=== PATIENT | female | born 1955 | race Caucasian/White ===

== ENCOUNTER 2023-09-18 16:36 | Inpatient (IN) | payer MEDICAID ==
[~2023-09-18] VITALS: Ht 157.5 cm; Wt 40.8 kg
[2023-09-18] MEDS ORDERED: NIFEDIPINE XL 90MG TAB PO ONE (17:00)
[2023-09-18] MEDS ORDERED: CLONIDINE 0.3MG TABLET PO ONE (17:00)
[2023-09-18] MEDS ORDERED: HYDRALAZINE HCL 100MG TABLET PO ONE (17:00)
[2023-09-18 17:41] LABS: HEMATOCRIT. 30.9 % (36.0-48.0); HEMOGLOBIN. 10.2 g/dL (12.0-16.0); MEAN CORPUSCULAR HEMOGLOBIN 30.4 pg (28.0-32.0); MEAN CORPUSCULAR HGB CONC 33.1 g/dL (31.0-37.0); MEAN PLATELET VOLUME 8.2 fl (7.4-10.4); PLATELET 202 x1000/uL (130-400); RED BLOOD CELL COUNT 3.36 mill/uL (4.2-5.4); RED CELL DISTRIBUTION WIDTH 15.6 % (11.6-14.6)
[2023-09-18 17:42] LABS: CHLORIDE 100 mEq/L (98-107); INDEX HEMOLYSI 2 (1-3); INDEX ICTERIC 1 (1-4); INDEX LIPEMIC 1 (1-3); POTASSIUM 4.6 mEq/L (3.5-5.1); SODIUM 136 mEq/L (136-145)
[2023-09-18 17:49] LABS: DIFFERENTIAL COMMENT 1
[2023-09-18 17:52] LABS: ALANINE AMINOTRANSFERASE 18 IU/L (13-61); ALBUMIN 3.7 g/dL (3.4-5.0); ASPARTATE AMINOTRANSFERASE 29 IU/L (15-37); BILIRUBIN TOTAL 1.1 mg/dL (0.1-1.0); CALCIUM 9.5 mg/dL (8.5-10.1); CARBON DIOXIDE 25 mEq/L (21-32); CREATININE 3.6 mg/dL (0.6-1.3); GLUCOSE 110 mg/dL (70-105); UREA NITROGEN BLOOD 18 mg/dL (7-21)
[2023-09-18 18:17] LABS: INR 1.1; PROTHROMBIN TIME 12.2 sec (9.6-11.0)
[2023-09-18 18:21] LABS: TROPONIN I HIGH SENSITIVITY 61 ng/L (<54)
[2023-09-18 18:26] LABS: PLATELET ESTIMATE NORMAL
[2023-09-18] MEDS ORDERED: ASPIRIN 325MG TABLET PO ONE (19:45)
[2023-09-18 20:38] LABS: TROPONIN I HIGH SENSITIVITY 88 ng/L (<54)
[2023-09-19] MEDS ORDERED: ONDANSETRON HCL 4MG/2ML INJ IV PRN (01:15)
[2023-09-19 04:00] LABS: INDEX HEMOLYSI 1 (1-3); INDEX ICTERIC 1 (1-4); INDEX LIPEMIC 1 (1-3)
[2023-09-19 04:03] LABS: TOTAL IRON BINDING CAPACITY 122 ug/dL (250-450)
[2023-09-19 04:13] LABS: IRON 11 ug/dL (50-175)
[2023-09-19] MEDS: HYDRALAZINE HCL 50MG TABLET PO SCH ×3 (06:00→23:00)
[2023-09-19 07:48] LABS: TROPONIN I HIGH SENSITIVITY 78 ng/L (<54)
[2023-09-19] MEDS: THIAMINE HCL 100MG TABLET PO SCH (09:24)
[2023-09-19] MEDS: MULTIVITAMINS,THER W-MINERALS TABLET PO SCH (09:24)
[2023-09-19] MEDS: PANTOPRAZOLE SODIUM 40 MG/VIAL IV SCH (09:24)
[2023-09-19] MEDS ORDERED: CEFTRIAXONE 1GM PREMIX 50 ML IV SCH (14:00)
[2023-09-19 14:13] VITALS: BP 165/73; PULSE 62; RESP 18; TEMP 97.9
[2023-09-19 16:00] VITALS: BP 122/67; PULSE 75; RESP 20; TEMP 98.2
[2023-09-19] MEDS ORDERED: CEFTRIAXONE 1,000 MG in DEXTROSE 5% WATER 50 ML IV SCH (16:00)
[2023-09-19 16:22] VITALS: BP 165/73; PULSE 98; RESP 18; TEMP 98.8
[2023-09-19 17:18] LABS: TROPONIN I HIGH SENSITIVITY 46 ng/L (<54)
[2023-09-19 17:46] LABS: HEPATITIS B SURFACE ANTIGEN NEGATIVE
[2023-09-19 18:17] LABS: HEPATITIS C VIR.AB 0.07 INDEXVAL (0.00-0.80)
[2023-09-19 20:05] VITALS: BP 122/61; PULSE 62; RESP 19; TEMP 98.6
[2023-09-19 22:46] VITALS: BP 142/64; PULSE 115; RESP 17
[2023-09-20] VITALS: BP 180/68; PULSE 60; RESP 18
[2023-09-20 04:00] VITALS: BP 178/74; PULSE 69; RESP 18; TEMP 97.9
[2023-09-20] MEDS: HYDRALAZINE HCL 50MG TABLET PO SCH ×3 (06:03→21:28)
[2023-09-20 07:36] LABS: BASOPHILS % 1.3 % (0.0-2.0); EOSINOPHILS % 13.5 % (0.0-5.0); HEMATOCRIT. 30.5 % (36.0-48.0); HEMOGLOBIN. 10.1 g/dL (12.0-16.0); LYMPHOCYTES % 9.2 % (20.0-50.0); MEAN CORPUSCULAR HEMOGLOBIN 30.4 pg (28.0-32.0); MEAN CORPUSCULAR HGB CONC 33.1 g/dL (31.0-37.0); MEAN CORPUSCULAR VOLUME 91.8 fL (81.0-99.0); MEAN PLATELET VOLUME 9.2 fl (7.4-10.4); MONOCYTES % 8.9 % (2.0-8.0); NEUTROPHILS % 67.1 % (40.0-76.0); PLATELET 238 x1000/uL (130-400); RED BLOOD CELL COUNT 3.32 mill/uL (4.2-5.4); RED CELL DISTRIBUTION WIDTH 15.8 % (11.6-14.6); WHITE BLOOD COUNT 11.1 x1000/uL (4.5-11.0)
[2023-09-20 08:00] VITALS: BP 170/75; PULSE 80; RESP 18; TEMP 99
[2023-09-20 08:45] LABS: CHLORIDE 102 mEq/L (98-107); INDEX HEMOLYSI 1 (1-3); INDEX ICTERIC 1 (1-4); INDEX LIPEMIC 1 (1-3); POTASSIUM 5.3 mEq/L (3.5-5.1); SODIUM 133 mEq/L (136-145)
[2023-09-20 09:00] LABS: ALANINE AMINOTRANSFERASE 16 IU/L (13-61); ALBUMIN 2.9 g/dL (3.4-5.0); ASPARTATE AMINOTRANSFERASE 15 IU/L (15-37); BILIRUBIN TOTAL 0.5 mg/dL (0.1-1.0); CALCIUM 8.2 mg/dL (8.5-10.1); CARBON DIOXIDE 24 mEq/L (21-32); GLUCOSE 93 mg/dL (70-105); PROTEIN TOTAL 7.2 g/dL (6.0-8.3); T4 FREE 1.24 ng/dL (0.76-1.46); UREA NITROGEN BLOOD 35 mg/dL (7-21)
[2023-09-20] MEDS: THIAMINE HCL 100MG TABLET PO SCH (09:25)
[2023-09-20] MEDS: MULTIVITAMINS,THER W-MINERALS TABLET PO SCH (09:25)
[2023-09-20] MEDS: PANTOPRAZOLE SODIUM 40 MG/VIAL IV SCH (09:25)
[2023-09-20 11:41] LABS: CREATININE 6.1 mg/dL (0.6-1.3)
[2023-09-20 12:00] VITALS: BP 167/70; PULSE 100; RESP 20; TEMP 98
[2023-09-20] MEDS: CEFEPIME 1,000 MG in DEXTROSE 5% WATER 50 ML IV SCH (14:01)
[2023-09-20] MEDS ORDERED: VANCOMYCIN 750MG PREMIX 150 ML IV NR (15:00)
[2023-09-20 16:00] VITALS: BP 150/65; PULSE 80; RESP 18; TEMP 98
[2023-09-20 20:00] VITALS: BP 137/106; PULSE 62; RESP 19; TEMP 98.5
[2023-09-20 20:00] LABS: HEPATITIS B CORE AB IGM NEGATIVE
[2023-09-20 20:02] LABS: HEPATITIS A AB IGM NEGATIVE (NEGATIVE)
[2023-09-21] VITALS (14 sets, daily range): BP systolic 110–185; BP diastolic 53–70; PULSE 58–94; RESP 13–17; TEMP 98.1–98.6
[2023-09-21] MEDS: CLONIDINE 0.1MG TABLET PO PRN ×2 (00:29→12:09)
[2023-09-21] MEDS: HYDRALAZINE HCL 50MG TABLET PO SCH ×3 (05:05→21:06)
[2023-09-21 06:40] LABS: BASOPHILS % 0.9 % (0.0-2.0); EOSINOPHILS % 10.4 % (0.0-5.0); HEMATOCRIT. 30.2 % (36.0-48.0); HEMOGLOBIN. 10.1 g/dL (12.0-16.0); LYMPHOCYTES % 8.4 % (20.0-50.0); MEAN CORPUSCULAR HEMOGLOBIN 30.3 pg (28.0-32.0); MEAN CORPUSCULAR HGB CONC 33.6 g/dL (31.0-37.0); MEAN CORPUSCULAR VOLUME 90.4 fL (81.0-99.0); MEAN PLATELET VOLUME 8.9 fl (7.4-10.4); MONOCYTES % 6.9 % (2.0-8.0); NEUTROPHILS % 73.4 % (40.0-76.0); PLATELET 258 x1000/uL (130-400); RED BLOOD CELL COUNT 3.34 mill/uL (4.2-5.4); RED CELL DISTRIBUTION WIDTH 15.8 % (11.6-14.6); WHITE BLOOD COUNT 10.1 x1000/uL (4.5-11.0)
[2023-09-21 07:43] LABS: POTASSIUM 5.7 mEq/L (3.5-5.1)
[2023-09-21 07:51] LABS: CALCIUM 8.8 mg/dL (8.5-10.1); PHOSPHORUS 4.5 mg/dL (2.5-4.9)
[2023-09-21] MEDS: THIAMINE HCL 100MG TABLET PO SCH (08:17)
[2023-09-21] MEDS: FAMOTIDINE 20MG TABLET PO SCH (08:17)
[2023-09-21] MEDS: MULTIVITAMINS,THER W-MINERALS TABLET PO SCH (08:17)
[2023-09-21 08:18] LABS: CREATININE 7.3 mg/dL (0.6-1.3)
[2023-09-21] MEDS ORDERED: VANCOMYCIN 500MG PREMIX 100 ML IV NR (09:30)
[2023-09-21 13:03] LABS: HEPATITIS C VIR.AB 0.11 INDEXVAL (0.00-0.80)
[2023-09-21 13:04] LABS: HEPATITIS B CORE AB IGM NEGATIVE
[2023-09-21 13:05] LABS: HEPATITIS A AB IGM NEGATIVE (NEGATIVE)
[2023-09-21] MEDS: CEFEPIME 1,000 MG in DEXTROSE 5% WATER 50 ML IV SCH (15:05)
[2023-09-21 17:56] LABS: HEPATITIS B SURFACE ANTIGEN NEGATIVE
[2023-09-21 17:57] LABS: HEPATITIS B SURFACE ANTIGEN NEGATIVE
[2023-09-22] VITALS (7 sets, daily range): BP systolic 135–169; BP diastolic 56–65; PULSE 55–65; RESP 13–17; TEMP 97.8–98.9
[2023-09-22] MEDS: CLONIDINE 0.1MG TABLET PO PRN (04:13)
[2023-09-22] MEDS: HYDRALAZINE HCL 50MG TABLET PO SCH ×3 (06:15→21:01)
[2023-09-22 07:17] LABS: POTASSIUM 4.6 mEq/L (3.5-5.1)
[2023-09-22 07:24] LABS: CALCIUM 8.8 mg/dL (8.5-10.1); HEMATOCRIT. 31.7 % (36.0-48.0); HEMOGLOBIN. 10.7 g/dL (12.0-16.0); LYMPHOCYTES % 12.6 % (20.0-50.0); MEAN CORPUSCULAR HEMOGLOBIN 30.7 pg (28.0-32.0); MEAN CORPUSCULAR HGB CONC 33.8 g/dL (31.0-37.0); MEAN CORPUSCULAR VOLUME 90.6 fL (81.0-99.0); MEAN PLATELET VOLUME 8.9 fl (7.4-10.4); MONOCYTES % 9.7 % (2.0-8.0); NEUTROPHILS % 63.7 % (40.0-76.0); PLATELET 298 x1000/uL (130-400); RED CELL DISTRIBUTION WIDTH 16.1 % (11.6-14.6); WHITE BLOOD COUNT 8.5 x1000/uL (4.5-11.0)
[2023-09-22 07:52] LABS: CREATININE 5.7 mg/dL (0.6-1.3)
[2023-09-22] MEDS: DOCUSATE SODIUM 100MG CAPSULE PO SCH ×2 (12:15→16:41)
[2023-09-22] MEDS: POLYETHYLENE GLYCOL 3350 (17GM) 1 DOSE PACK PO SCH (12:15)
[2023-09-22] MEDS: THIAMINE HCL 100MG TABLET PO SCH (13:16)
[2023-09-22] MEDS: MULTIVITAMINS,THER W-MINERALS TABLET PO SCH (13:18)
[2023-09-22] MEDS: CEFEPIME 1,000 MG in DEXTROSE 5% WATER 50 ML IV SCH (16:41)
[2023-09-22] MEDS: ATORVASTATIN CALCIUM 20MG TABLET PO SCH (21:01)
[2023-09-23] VITALS (17 sets, daily range): BP systolic 112–190; BP diastolic 53–75; PULSE 6–72; RESP 12–17; TEMP 97.1–98.2
[2023-09-23] MEDS: CLONIDINE 0.1MG TABLET PO PRN ×2 (00:47→16:09)
[2023-09-23] MEDS: HYDRALAZINE HCL 50MG TABLET PO SCH ×3 (05:14→21:06)
[2023-09-23] MEDS ORDERED: MIDAZOLAM HCL 2 MG/2 ML VIAL ONE (08:28)
[2023-09-23] MEDS ORDERED: HEPARIN 1000 UNITS/ML 10ML ONE (08:28)
[2023-09-23] MEDS ORDERED: VERAPAMIL HCL 2.5 MG/1 ML 2ML VIAL IV ONE (08:28)
[2023-09-23] MEDS ORDERED: DIPHENHYDRAMINE 50MG/ML VIAL ONE (08:28)
[2023-09-23] MEDS ORDERED: FENTANYL CITRATE/PF 50MCG/ML 2ML VIAL ONE (08:28)
[2023-09-23] MEDS ORDERED: LIDOCAINE HCL 1% 20ML VIAL (Pyxis) INJ ONE (08:29)
[2023-09-23] MEDS ORDERED: IODIXANOL 320MG/ML 100 ML BOTTLE IV ONE ×2 (08:30→09:50)
[2023-09-23 08:32] LABS: HEMOGLOBIN. 10.6 g/dL (12.0-16.0); MEAN CORPUSCULAR HGB CONC 33.2 g/dL (31.0-37.0); MEAN CORPUSCULAR VOLUME 90.5 fL (81.0-99.0); MEAN PLATELET VOLUME 8.2 fl (7.4-10.4); PLATELET 343 x1000/uL (130-400); RED BLOOD CELL COUNT 3.53 mill/uL (4.2-5.4); RED CELL DISTRIBUTION WIDTH 15.4 % (11.6-14.6); WHITE BLOOD COUNT 8.8 x1000/uL (4.5-11.0)
[2023-09-23 08:35] LABS: DIFFERENTIAL COMMENT 1
[2023-09-23 09:01] LABS: CALCIUM 8.5 mg/dL (8.5-10.1); POTASSIUM 5.3 mEq/L (3.5-5.1)
[2023-09-23] MEDS ORDERED: HYDRALAZINE 20MG/ML VIAL ONE (09:02)
[2023-09-23 09:07] LABS: CREATININE 7.3 mg/dL (0.6-1.3)
[2023-09-23 09:42] LABS: PLATELET ESTIMATE NORMAL
[2023-09-23 09:43] LABS: ANISOCYTOSIS 1+
[2023-09-23] MEDS ORDERED: CLOPIDOGREL 75MG TABLET ONE (10:14)
[2023-09-23] MEDS ORDERED: ASPIRIN 325MG TABLET ONE (10:17)
[2023-09-23] MEDS ORDERED: ATROPINE SULFATE 1MG/10ML SYR IV PRN (10:30)
[2023-09-23] MEDS: THIAMINE HCL 100MG TABLET PO SCH (12:10)
[2023-09-23] MEDS: MULTIVITAMINS,THER W-MINERALS TABLET PO SCH (12:10)
[2023-09-23] MEDS: FAMOTIDINE 20MG TABLET PO SCH (12:10)
[2023-09-23] MEDS: DOCUSATE SODIUM 100MG CAPSULE PO SCH ×2 (12:10→16:09)
[2023-09-23] MEDS: POLYETHYLENE GLYCOL 3350 (17GM) 1 DOSE PACK PO SCH (12:11)
[2023-09-23] MEDS: CEFEPIME 1,000 MG in DEXTROSE 5% WATER 50 ML IV SCH (14:32)
[2023-09-23] MEDS ORDERED: ENALAPRIL 1.25MG/ML VIAL 1ML IV NR (19:30)
[2023-09-23] MEDS: ATORVASTATIN CALCIUM 20MG TABLET PO SCH (21:06)
[2023-09-24] VITALS: BP 124/72; PULSE 70; RESP 15; TEMP 97.3
[2023-09-24 04:00] VITALS: BP 150/61; PULSE 67; RESP 12; TEMP 97.8
[2023-09-24] MEDS: HYDRALAZINE HCL 50MG TABLET PO SCH ×3 (06:07→22:22)
[2023-09-24 07:23] LABS: BASOPHILS % 0.8 % (0.0-2.0); EOSINOPHILS % 13.8 % (0.0-5.0); HEMATOCRIT. 32.4 % (36.0-48.0); HEMOGLOBIN. 10.8 g/dL (12.0-16.0); LYMPHOCYTES % 9.4 % (20.0-50.0); MEAN CORPUSCULAR HEMOGLOBIN 30.6 pg (28.0-32.0); MEAN CORPUSCULAR HGB CONC 33.5 g/dL (31.0-37.0); MEAN CORPUSCULAR VOLUME 91.4 fL (81.0-99.0); MEAN PLATELET VOLUME 8.5 fl (7.4-10.4); MONOCYTES % 7.2 % (2.0-8.0); NEUTROPHILS % 68.8 % (40.0-76.0); PLATELET 379 x1000/uL (130-400); RED BLOOD CELL COUNT 3.54 mill/uL (4.2-5.4); RED CELL DISTRIBUTION WIDTH 15.7 % (11.6-14.6); WHITE BLOOD COUNT 9.1 x1000/uL (4.5-11.0)
[2023-09-24 07:41] LABS: POTASSIUM 4.5 mEq/L (3.5-5.1)
[2023-09-24 07:49] LABS: CALCIUM 9.2 mg/dL (8.5-10.1)
[2023-09-24 08:00] VITALS: BP 150/61; PULSE 70; RESP 16; TEMP 98
[2023-09-24 08:19] LABS: CREATININE 6.1 mg/dL (0.6-1.3)
[2023-09-24] MEDS: POLYETHYLENE GLYCOL 3350 (17GM) 1 DOSE PACK PO SCH (09:00)
[2023-09-24] MEDS: DOCUSATE SODIUM 100MG CAPSULE PO SCH ×2 (09:07→17:28)
[2023-09-24] MEDS: CLOPIDOGREL 75MG TABLET PO SCH (09:08)
[2023-09-24] MEDS: MULTIVITAMINS,THER W-MINERALS TABLET PO SCH (09:08)
[2023-09-24] MEDS: ASPIRIN 325MG TABLET PO SCH (09:08)
[2023-09-24] MEDS: THIAMINE HCL 100MG TABLET PO SCH (09:08)
[2023-09-24 12:00] VITALS: BP 150/61; PULSE 80; RESP 12; TEMP 98.6
[2023-09-24] MEDS ORDERED: HYDR-4135 PO ×2 (12:42)
[2023-09-24] MEDS ORDERED: CLOP-31 PO (12:42)
[2023-09-24] MEDS ORDERED: ATOR20TA PO (12:42)
[2023-09-24] MEDS ORDERED: POLY17PO43 PO (12:42)
[2023-09-24] MEDS ORDERED: ASPI-986 PO ×2 (12:42)
[2023-09-24] MEDS ORDERED: THIA100T72 PO (12:42)
[2023-09-24 16:00] VITALS: BP 154/72; PULSE 65; RESP 16; TEMP 98.4
[2023-09-24 20:18] VITALS: BP 214/78; PULSE 66; RESP 14; TEMP 97.5
[2023-09-24] MEDS: CEFEPIME 1,000 MG in DEXTROSE 5% WATER 50 ML IV SCH (20:19)
[2023-09-24] MEDS: ATORVASTATIN CALCIUM 20MG TABLET PO SCH (20:20)
[2023-09-24] MEDS: CLONIDINE 0.1MG TABLET PO PRN (20:20)
[2023-09-24] MEDS ORDERED: ENALAPRIL 1.25MG/ML VIAL 1ML IV NR (20:30)
[2023-09-25] VITALS (14 sets, daily range): BP systolic 111–192; BP diastolic 53–71; PULSE 54–72; RESP 13–20; TEMP 97.8–98.7
[2023-09-25 00:38] LABS: HEPATITIS B SURFACE ANTIGEN NEGATIVE
[2023-09-25 01:06] LABS: HEPATITIS B CORE AB IGM NEGATIVE
[2023-09-25 01:08] LABS: HEPATITIS A AB IGM NEGATIVE (NEGATIVE)
[2023-09-25] MEDS: HYDRALAZINE HCL 50MG TABLET PO SCH ×3 (06:16→23:06)
[2023-09-25 07:10] LABS: HEMATOCRIT. 31.5 % (36.0-48.0); HEMOGLOBIN. 10.8 g/dL (12.0-16.0); MEAN CORPUSCULAR HEMOGLOBIN 30.8 pg (28.0-32.0); MEAN CORPUSCULAR HGB CONC 34.3 g/dL (31.0-37.0); MEAN CORPUSCULAR VOLUME 89.8 fL (81.0-99.0); MEAN PLATELET VOLUME 8.2 fl (7.4-10.4); PLATELET 415 x1000/uL (130-400); RED BLOOD CELL COUNT 3.51 mill/uL (4.2-5.4); RED CELL DISTRIBUTION WIDTH 15.9 % (11.6-14.6); WHITE BLOOD COUNT 10.1 x1000/uL (4.5-11.0)
[2023-09-25 07:19] LABS: POTASSIUM 4.8 mEq/L (3.5-5.1)
[2023-09-25 07:21] LABS: DIFFERENTIAL COMMENT 1
[2023-09-25 07:24] LABS: CALCIUM 8.9 mg/dL (8.5-10.1)
[2023-09-25 07:41] LABS: CREATININE 7.3 mg/dL (0.6-1.3)
[2023-09-25] MEDS: CLONIDINE 0.1MG TABLET PO SCH ×2 (09:20→20:19)
[2023-09-25] MEDS: ASPIRIN 325MG TABLET PO SCH (09:20)
[2023-09-25] MEDS: CLOPIDOGREL 75MG TABLET PO SCH (09:20)
[2023-09-25] MEDS: MULTIVITAMINS,THER W-MINERALS TABLET PO SCH (09:21)
[2023-09-25] MEDS: FAMOTIDINE 20MG TABLET PO SCH (09:21)
[2023-09-25] MEDS: THIAMINE HCL 100MG TABLET PO SCH (09:21)
[2023-09-25] MEDS: DOCUSATE SODIUM 100MG CAPSULE PO SCH ×2 (09:21→16:59)
[2023-09-25] MEDS: POLYETHYLENE GLYCOL 3350 (17GM) 1 DOSE PACK PO SCH (09:22)
[2023-09-25 11:23] LABS: TROPONIN I HIGH SENSITIVITY 402 ng/L (<54)
[2023-09-25 12:29] LABS: PLATELET ESTIMATE SLIGHTLY INCREASED
[2023-09-25] MEDS ORDERED: ONDANSETRON 4MG ODT PO PRN (14:21)
[2023-09-25] MEDS: CEFEPIME 1,000 MG in DEXTROSE 5% WATER 50 ML IV SCH ×2 (15:00→20:20)
[2023-09-25] MEDS: ATORVASTATIN CALCIUM 20MG TABLET PO SCH (20:19)
[2023-09-26] VITALS (8 sets, daily range): BP systolic 141–195; BP diastolic 59–75; PULSE 64–85; RESP 1–18; TEMP 97.5–97.7
[2023-09-26] MEDS: HYDRALAZINE 20MG/ML VIAL IV PRN ×2 (01:43→14:08)
[2023-09-26] MEDS: HYDRALAZINE HCL 50MG TABLET PO SCH (06:50)
[2023-09-26 07:43] LABS: HEMATOCRIT. 31.6 % (36.0-48.0); HEMOGLOBIN. 10.5 g/dL (12.0-16.0); MEAN CORPUSCULAR HEMOGLOBIN 30.2 pg (28.0-32.0); MEAN CORPUSCULAR HGB CONC 33.4 g/dL (31.0-37.0); MEAN CORPUSCULAR VOLUME 90.4 fL (81.0-99.0); MEAN PLATELET VOLUME 8.4 fl (7.4-10.4); PLATELET 438 x1000/uL (130-400); RED BLOOD CELL COUNT 3.49 mill/uL (4.2-5.4); RED CELL DISTRIBUTION WIDTH 15.5 % (11.6-14.6)
[2023-09-26 07:56] LABS: DIFFERENTIAL COMMENT 1
[2023-09-26 08:04] LABS: CALCIUM 9.1 mg/dL (8.5-10.1); POTASSIUM 4.5 mEq/L (3.5-5.1)
[2023-09-26 08:08] LABS: CREATININE 5.6 mg/dL (0.6-1.3)
[2023-09-26] MEDS: ASPIRIN 325MG TABLET PO SCH (09:05)
[2023-09-26] MEDS: CLOPIDOGREL 75MG TABLET PO SCH (09:05)
[2023-09-26] MEDS: THIAMINE HCL 100MG TABLET PO SCH (09:05)
[2023-09-26] MEDS: DOCUSATE SODIUM 100MG CAPSULE PO SCH ×2 (09:05→16:44)
[2023-09-26] MEDS: MULTIVITAMINS,THER W-MINERALS TABLET PO SCH (09:05)
[2023-09-26] MEDS: CLONIDINE 0.1MG TABLET PO SCH ×2 (09:06→21:31)
[2023-09-26] MEDS: POLYETHYLENE GLYCOL 3350 (17GM) 1 DOSE PACK PO SCH (09:06)
[2023-09-26 14:21] LABS: PLATELET ESTIMATE INCREASED
[2023-09-26] MEDS: HYDRALAZINE HCL 100MG TABLET PO SCH ×2 (15:21→21:31)
[2023-09-26] MEDS: ATORVASTATIN CALCIUM 20MG TABLET PO SCH (21:30)
[2023-09-26] MEDS: CEFEPIME 1,000 MG in DEXTROSE 5% WATER 50 ML IV SCH (21:31)
[2023-09-27] VITALS (7 sets, daily range): BP systolic 133–190; BP diastolic 67–78; PULSE 63–79; RESP 14–20; TEMP 97.5–98.3
[2023-09-27] MEDS: HYDRALAZINE 20MG/ML VIAL IV PRN (04:49)
[2023-09-27] MEDS: HYDRALAZINE HCL 100MG TABLET PO SCH ×3 (06:52→21:19)
[2023-09-27 07:09] LABS: HEMATOCRIT. 31.7 % (36.0-48.0); HEMOGLOBIN. 10.5 g/dL (12.0-16.0); MEAN CORPUSCULAR HEMOGLOBIN 30.1 pg (28.0-32.0); MEAN CORPUSCULAR HGB CONC 33.1 g/dL (31.0-37.0); MEAN CORPUSCULAR VOLUME 90.8 fL (81.0-99.0); MEAN PLATELET VOLUME 8.3 fl (7.4-10.4); PLATELET 441 x1000/uL (130-400); RED BLOOD CELL COUNT 3.49 mill/uL (4.2-5.4); WHITE BLOOD COUNT 10.8 x1000/uL (4.5-11.0)
[2023-09-27 07:30] LABS: DIFFERENTIAL COMMENT 1
[2023-09-27 07:51] LABS: CREATININE 7.1 mg/dL (0.6-1.3)
[2023-09-27] MEDS: CLONIDINE 0.1MG TABLET PO SCH ×2 (09:44→21:19)
[2023-09-27] MEDS: CLOPIDOGREL 75MG TABLET PO SCH (09:44)
[2023-09-27] MEDS: DOCUSATE SODIUM 100MG CAPSULE PO SCH ×2 (09:44→17:22)
[2023-09-27] MEDS: THIAMINE HCL 100MG TABLET PO SCH (09:44)
[2023-09-27] MEDS: FAMOTIDINE 20MG TABLET PO SCH (09:44)
[2023-09-27] MEDS: ASPIRIN 81MG TABLET PO SCH (09:45)
[2023-09-27] MEDS: MULTIVITAMINS,THER W-MINERALS TABLET PO SCH (09:45)
[2023-09-27] MEDS: POLYETHYLENE GLYCOL 3350 (17GM) 1 DOSE PACK PO SCH (09:45)
[2023-09-27 13:16] LABS: ANISOCYTOSIS 1+; PLATELET ESTIMATE INCREASED
[2023-09-27] MEDS: CLONIDINE 0.1MG TABLET PO PRN ×2 (17:23→18:39)
[2023-09-27] MEDS: CEFEPIME 1,000 MG in DEXTROSE 5% WATER 50 ML IV SCH (20:06)
[2023-09-27] MEDS ORDERED: AMLODIPINE 5MG TABLET PO NR (21:15)
[2023-09-27] MEDS: ATORVASTATIN CALCIUM 20MG TABLET PO SCH (21:19)
[2023-09-28] VITALS (8 sets, daily range): BP systolic 122–196; BP diastolic 65–91; PULSE 65–79; RESP 14–20; TEMP 96.8–98.1
[2023-09-28] LABS: HEPATITIS B SURFACE ANTIGEN NEGATIVE
[2023-09-28 00:28] LABS: HEPATITIS C VIR.AB 0.15 INDEXVAL (0.00-0.80)
[2023-09-28 00:29] LABS: HEPATITIS B CORE AB IGM NEGATIVE
[2023-09-28 00:32] LABS: HEPATITIS A AB IGM NEGATIVE (NEGATIVE)
[2023-09-28] MEDS: CLONIDINE 0.1MG TABLET PO PRN (02:08)
[2023-09-28] MEDS: HYDRALAZINE HCL 100MG TABLET PO SCH ×3 (05:31→18:55)
[2023-09-28] MEDS: MULTIVITAMINS,THER W-MINERALS TABLET PO SCH (08:38)
[2023-09-28] MEDS: CLOPIDOGREL 75MG TABLET PO SCH (08:39)
[2023-09-28] MEDS: AMLODIPINE 10MG TABLET PO SCH (08:39)
[2023-09-28] MEDS: THIAMINE HCL 100MG TABLET PO SCH (08:39)
[2023-09-28] MEDS: CLONIDINE 0.1MG TABLET PO SCH ×2 (08:39→21:16)
[2023-09-28] MEDS: ASPIRIN 81MG TABLET PO SCH (08:39)
[2023-09-28] MEDS: DOCUSATE SODIUM 100MG CAPSULE PO SCH ×2 (08:39→18:54)
[2023-09-28] MEDS: POLYETHYLENE GLYCOL 3350 (17GM) 1 DOSE PACK PO SCH (08:45)
[2023-09-28] MEDS: CEFEPIME 1,000 MG in DEXTROSE 5% WATER 50 ML IV SCH (20:15)
[2023-09-28] MEDS: ATORVASTATIN CALCIUM 20MG TABLET PO SCH (21:16)
[2023-09-29] MEDS: CLONIDINE 0.1MG TABLET PO PRN (06:39)
[2023-09-29 08:00] VITALS: BP 171/80; PULSE 87; RESP 20; TEMP 98.8
[2023-09-29 08:40] LABS: POTASSIUM 4.6 mEq/L (3.5-5.1)
[2023-09-29 08:49] LABS: CALCIUM 9.4 mg/dL (8.5-10.1)
[2023-09-29 09:21] LABS: CREATININE 6.6 mg/dL (0.6-1.3)
[2023-09-29] MEDS: MULTIVITAMINS,THER W-MINERALS TABLET PO SCH (09:38)
[2023-09-29] MEDS: ASPIRIN 81MG TABLET PO SCH (09:38)
[2023-09-29] MEDS: FAMOTIDINE 20MG TABLET PO SCH (09:38)
[2023-09-29] MEDS: POLYETHYLENE GLYCOL 3350 (17GM) 1 DOSE PACK PO SCH (09:38)
[2023-09-29] MEDS: DOCUSATE SODIUM 100MG CAPSULE PO SCH ×2 (09:38→17:00)
[2023-09-29] MEDS: THIAMINE HCL 100MG TABLET PO SCH (09:38)
[2023-09-29] MEDS: CLOPIDOGREL 75MG TABLET PO SCH (09:39)
[2023-09-29] MEDS: HYDRALAZINE HCL 100MG TABLET PO SCH ×3 (09:40→17:00)
[2023-09-29] MEDS: AMLODIPINE 10MG TABLET PO SCH (09:40)
[2023-09-29] MEDS: CLONIDINE 0.1MG TABLET PO SCH ×2 (09:40→21:46)
[2023-09-29 12:00] VITALS: BP 164/72; PULSE 80; RESP 20; TEMP 98.4
[2023-09-29 20:00] VITALS: BP 151/75; PULSE 85; RESP 20; TEMP 96.8
[2023-09-29] MEDS: ATORVASTATIN CALCIUM 20MG TABLET PO SCH (21:45)
[2023-09-29] MEDS: CEFEPIME 1,000 MG in DEXTROSE 5% WATER 50 ML IV SCH (22:12)
[2023-09-30] VITALS (14 sets, daily range): BP systolic 112–171; BP diastolic 56–83; PULSE 76–85; RESP 17–20; TEMP 95.9–98
[2023-09-30] MEDS: MULTIVITAMINS,THER W-MINERALS TABLET PO SCH (09:16)
[2023-09-30] MEDS: CLONIDINE 0.1MG TABLET PO SCH ×2 (09:16→21:29)
[2023-09-30] MEDS: ASPIRIN 81MG TABLET PO SCH (09:16)
[2023-09-30] MEDS: POLYETHYLENE GLYCOL 3350 (17GM) 1 DOSE PACK PO SCH (09:16)
[2023-09-30] MEDS: HYDRALAZINE HCL 100MG TABLET PO SCH ×4 (09:16→17:00)
[2023-09-30] MEDS: CLOPIDOGREL 75MG TABLET PO SCH (09:17)
[2023-09-30] MEDS: THIAMINE HCL 100MG TABLET PO SCH (09:17)
[2023-09-30] MEDS: AMLODIPINE 10MG TABLET PO SCH (09:17)
[2023-09-30] MEDS: DOCUSATE SODIUM 100MG CAPSULE PO SCH ×2 (09:17→17:00)
[2023-09-30] MEDS ORDERED: HYDRALAZINE 10 MG in SODIUM CHLORIDE 0.9% 49.5 ML IV PRN ×2 (20:00→20:15)
[2023-09-30] MEDS: CEFEPIME 1,000 MG in DEXTROSE 5% WATER 50 ML IV SCH (20:26)
[2023-09-30] MEDS: ATORVASTATIN CALCIUM 20MG TABLET PO SCH (21:00)
[2023-09-30] MEDS: CLONIDINE 0.1MG TABLET PO PRN (23:28)
[2023-10-01] VITALS: BP 172/82; PULSE 83; RESP 20; TEMP 96.5
[2023-10-01 04:00] VITALS: BP 117/72; PULSE 74; RESP 20; TEMP 96.5
[2023-10-01 08:00] VITALS: BP 176/77; PULSE 79; RESP 19; TEMP 97
[2023-10-01] MEDS: HYDRALAZINE HCL 100MG TABLET PO SCH ×3 (08:24→17:21)
[2023-10-01] MEDS: ASPIRIN 81MG TABLET PO SCH (08:25)
[2023-10-01] MEDS: FAMOTIDINE 20MG TABLET PO SCH (08:25)
[2023-10-01] MEDS: MULTIVITAMINS,THER W-MINERALS TABLET PO SCH (08:25)
[2023-10-01] MEDS: DOCUSATE SODIUM 100MG CAPSULE PO SCH ×2 (08:26→17:21)
[2023-10-01] MEDS: CLOPIDOGREL 75MG TABLET PO SCH (08:26)
[2023-10-01] MEDS: AMLODIPINE 10MG TABLET PO SCH (08:26)
[2023-10-01] MEDS: CLONIDINE 0.1MG TABLET PO SCH ×2 (08:26→21:41)
[2023-10-01] MEDS: THIAMINE HCL 100MG TABLET PO SCH (08:26)
[2023-10-01 09:23] LABS: POTASSIUM 4.4 mEq/L (3.5-5.1)
[2023-10-01 09:25] LABS: CALCIUM 9.2 mg/dL (8.5-10.1)
[2023-10-01 09:44] LABS: CREATININE 5.8 mg/dL (0.6-1.3)
[2023-10-01] MEDS: POLYETHYLENE GLYCOL 3350 (17GM) 1 DOSE PACK PO SCH (09:59)
[2023-10-01 12:00] VITALS: BP 114/65; PULSE 73; RESP 18; TEMP 96.9
[2023-10-01 16:00] VITALS: BP 151/62; PULSE 72; RESP 19; TEMP 96.9
[2023-10-01 16:49] LABS: HEPATITIS B SURFACE ANTIGEN NEGATIVE
[2023-10-01 17:00] LABS: HEPATITIS C VIR.AB 0.08 INDEXVAL (0.00-0.80)
[2023-10-01 17:14] LABS: HEPATITIS B CORE AB IGM NEGATIVE
[2023-10-01 17:16] LABS: HEPATITIS A AB IGM NEGATIVE (NEGATIVE)
[2023-10-01 20:00] VITALS: BP 158/71; PULSE 77; RESP 18; TEMP 96.4
[2023-10-01] MEDS: CEFEPIME 1,000 MG in DEXTROSE 5% WATER 50 ML IV SCH (20:57)
[2023-10-01] MEDS: ATORVASTATIN CALCIUM 20MG TABLET PO SCH (21:41)
[2023-10-01] MEDS: ACETAMINOPHEN 325MG TABLET PO PRN (21:43)
[2023-10-01] MEDS: CLONIDINE 0.1MG TABLET PO PRN (23:48)
[2023-10-02] VITALS (13 sets, daily range): BP systolic 110–192; BP diastolic 54–89; PULSE 64–101; RESP 18–22; TEMP 96.2–98.6
[2023-10-02] MEDS: CLONIDINE 0.1MG TABLET PO PRN (06:46)
[2023-10-02] MEDS: CLONIDINE 0.1MG TABLET PO SCH ×2 (09:00→21:02)
[2023-10-02] MEDS: HYDRALAZINE HCL 100MG TABLET PO SCH ×3 (09:00→17:00)
[2023-10-02] MEDS: POLYETHYLENE GLYCOL 3350 (17GM) 1 DOSE PACK PO SCH (09:23)
[2023-10-02] MEDS: DOCUSATE SODIUM 100MG CAPSULE PO SCH ×2 (09:23→17:00)
[2023-10-02] MEDS: ASPIRIN 81MG TABLET PO SCH (09:24)
[2023-10-02] MEDS: CLOPIDOGREL 75MG TABLET PO SCH (09:24)
[2023-10-02] MEDS: THIAMINE HCL 100MG TABLET PO SCH (09:24)
[2023-10-02] MEDS: AMLODIPINE 10MG TABLET PO SCH (09:24)
[2023-10-02] MEDS: MULTIVITAMINS,THER W-MINERALS TABLET PO SCH (09:24)
[2023-10-02] MEDS: CEFEPIME 1,000 MG in DEXTROSE 5% WATER 50 ML IV SCH (20:51)
[2023-10-02] MEDS: ATORVASTATIN CALCIUM 20MG TABLET PO SCH (21:02)
[2023-10-02] MEDS: ACETAMINOPHEN 325MG TABLET PO PRN (21:06)
[2023-10-03] VITALS: BP 153/46; PULSE 81; RESP 20; TEMP 97.5
[2023-10-03 04:00] VITALS: BP 151/55; PULSE 76; RESP 20; TEMP 96.9
[2023-10-03] MEDS: CLONIDINE 0.1MG TABLET PO PRN (06:55)
[2023-10-03 08:00] VITALS: BP 156/64; PULSE 72; RESP 17; TEMP 98.8
[2023-10-03] MEDS: POLYETHYLENE GLYCOL 3350 (17GM) 1 DOSE PACK PO SCH (08:50)
[2023-10-03] MEDS: FAMOTIDINE 20MG TABLET PO SCH (08:50)
[2023-10-03] MEDS: DOCUSATE SODIUM 100MG CAPSULE PO SCH (08:50)
[2023-10-03] MEDS: THIAMINE HCL 100MG TABLET PO SCH (08:50)
[2023-10-03] MEDS: ASPIRIN 81MG TABLET PO SCH (08:50)
[2023-10-03] MEDS: CLOPIDOGREL 75MG TABLET PO SCH (08:51)
[2023-10-03] MEDS ORDERED: ASPI-1160 PO (09:05)
[2023-10-03] MEDS ORDERED: AMLO10TA80 PO (09:05)
[2023-10-03] MEDS ORDERED: HYDR100T26 PO (09:05)
[2023-10-03] MEDS: MULTIVITAMINS,THER W-MINERALS TABLET PO SCH (10:00)
[2023-10-03] MEDS: AMLODIPINE 10MG TABLET PO SCH (10:01)
[2023-10-03] MEDS: HYDRALAZINE HCL 100MG TABLET PO SCH ×2 (10:01→13:00)
[2023-10-03] MEDS: CLONIDINE 0.1MG TABLET PO SCH (10:01)
[2023-10-03 12:00] VITALS: BP 136/50; PULSE 61; RESP 17; TEMP 99.3
[2023-10-03] MEDS ORDERED: CEFEPIME 1,000 MG in DEXTROSE 5% WATER 50 ML IV NR (13:00)
[2023-10-03 15:39] VITALS: BP 136/50; PULSE 61; TEMP 99.3; O2SAT 100
[2023-10-03 16:00] VITALS: BP 137/56; PULSE 69; RESP 18; TEMP 98
== END 2023-10-03 18:05 | disposition home health service (06) | DRG 710 ==
LOC: ER 16:36 → MICUSO 22:10 → EDBEDREQ 22:13 → 3WST 09-19 14:01 → 6EST 09-27 15:34
PROVIDERS: ADMIT Internal Medicine; ATTEND Internal Medicine
PROC: 5A1D70Z Performance of Urinary Filtration, Intermittent, Less than 6 Hours Per Day (ICD-10-PCS; 2023-09-21)
PROC: 027034Z Dilation of Coronary Artery, One Artery with Drug-eluting Intraluminal Device, Percutaneous Approach (ICD-10-PCS; principal; 2023-09-23)
PROC: 4A023N7 Measurement of Cardiac Sampling and Pressure, Left Heart, Percutaneous Approach (ICD-10-PCS; 2023-09-23)
PROC: B211YZZ Fluoroscopy of Multiple Coronary Arteries using Other Contrast (ICD-10-PCS; 2023-09-23)
PROC: B41FYZZ Fluoroscopy of Right Lower Extremity Arteries using Other Contrast (ICD-10-PCS; 2023-09-23)
PROC: B240ZZ3 Ultrasonography of Single Coronary Artery, Intravascular (ICD-10-PCS; 2023-09-23)
PROC: 5A1D70Z Performance of Urinary Filtration, Intermittent, Less than 6 Hours Per Day (ICD-10-PCS; 2023-09-23)
PROC: 5A1D70Z Performance of Urinary Filtration, Intermittent, Less than 6 Hours Per Day (ICD-10-PCS; 2023-09-25)
PROC: 5A1D70Z Performance of Urinary Filtration, Intermittent, Less than 6 Hours Per Day (ICD-10-PCS; 2023-09-28)
PROC: 5A1D70Z Performance of Urinary Filtration, Intermittent, Less than 6 Hours Per Day (ICD-10-PCS; 2023-09-30)
PROC: 5A1D70Z Performance of Urinary Filtration, Intermittent, Less than 6 Hours Per Day (ICD-10-PCS; 2023-10-02)
DX: A41.9 Sepsis, unspecified organism (principal); I13.2 Hypertensive heart and chronic kidney disease with heart failure and with stage 5 chronic kidney disease, or end stage renal disease; I21.A1 Myocardial infarction type 2; G90.8 Other disorders of autonomic nervous system; D63.8 Anemia in other chronic diseases classified elsewhere; E87.1 Hypo-osmolality and hyponatremia; N18.6 End stage renal disease; I50.30 Unspecified diastolic (congestive) heart failure; Z20.822 Contact with and (suspected) exposure to COVID-19; I16.1 Hypertensive emergency; K52.9 Noninfective gastroenteritis and colitis, unspecified; N39.0 Urinary tract infection, site not specified; E87.5 Hyperkalemia; E78.5 Hyperlipidemia, unspecified; I25.10 Atherosclerotic heart disease of native coronary artery without angina pectoris; I35.8 Other nonrheumatic aortic valve disorders; E61.1 Iron deficiency; Z99.2 Dependence on renal dialysis; Z79.82 Long term (current) use of aspirin; Z91.199 Patient's noncompliance with other medical treatment and regimen due to unspecified reason
CPT/HCPCS: 36415; 71045; 80048; 80053; 80061; 80202; 82728; 83036; 83540; 83550; 83605; 83735; 83880; 84100; 84145; 84439; 84443; 84484; 85025; 85347; 86705; 86706; 86709; 86803; 86850; 86900; 87340; 87426; 90935; 92928; 92978; 93005; 93306; 93308; 93458; 93880; 97162; 97166; 99291; C1725; C1753; C1760; C1769; C1874; C1887; C1893; C9113; J0360; J0692; J0696; J1200; J1644; J2250; J3010; J3370; J3490; J7060; Q9967